=== PATIENT | female | born 1960 | race Caucasian/White ===

== ENCOUNTER → 2017-03-09 | Outpatient (CLI) | payer OTHER ==
[~2017-03-09] MED LIST: GBPN300C PO; LABE100T PO; LEVA15HF3; LORA-404 PO; LSNP20T PO; NAPR500T3 PO; OXYC5CAP4; TRM50T PO
--- NOTE | 2017-03-12 19:48 | Diagnostic Imaging Report ---
INDICATION: Screening. COMPARISON: 04/03/2013 The current digital study was evaluated with a Computer Aided Detection (CAD). FINDINGS: Dense fibroglandular pattern noted bilaterally. There are no masses. No clustered calcifications. No architectural distortion. IMPRESSION: Stable bilateral mammogram. Routine followup recommended. ACR BI-RADS Category 2: Benign findings. Result letter will be mailed to the patient. Note: At least 10% of breast cancer is not imaged by mammography. Dictated by: Dictated on workstation # [id number]
== END ==
LOC: RAD 08:18
PROVIDERS: ATTEND Family Medicine
DX: Z12.31 Encounter for screening mammogram for malignant neoplasm of breast (principal)

== ENCOUNTER 2017-03-19 06:31 | Day surgery (SDC) | payer OTHER ==
[~2017-03-19] VITALS: Ht 149.9 cm; Wt 69.0 kg
[2017-03-19] VITALS (9 sets, daily range): BP systolic 99–127; BP diastolic 51–79
[~2017-03-19 06:31] MED LIST changes: +LACTATED RINGERS 1,000 ML IV SCH; +SODIUM CHLORIDE FLUSH 3 ML SYR IV PRN
--- OUTSIDE RECORDS SUMMARY | 2017-03-19 06:34 | XMS REPORT | Continuity of Care Document ---
Author Author [facility] Organization [facility] Address Unknown Phone Unavailable Care Team Providers Care Threshing Department Supervisor Name Role Phone Jose Cali MD PCP [phone] Insurance Providers Payer Name Policy Number Subscriber Name Relationship [employer] [id number] Nba Iraheta 17 Self / Same As Patient Chief Complaint and Reason for Visit Chief Complaint Pain Reason for Visit [id number] Problems Medical Problems Problem Onset Date Status exposure to chemical 04/19/2012 Resolved Leg pain Unknown Active Joint pain Unknown Active Medications Medication Dose Route Sig Days/Qty Instructions Order Date Discontinued Date Status Levalbuterol Tartrate 04/19/12 02/16/15 Discontinued Lisinopril (Zestril) 20 Mg ORAL DAILY 04/19/12 Active Labetalol Hcl (Normodyne) 100 Mg ORAL DAILY 04/19/12 02/16/15 Discontinued Oxycodone Hcl 04/19/12 02/16/15 Discontinued Gabapentin (Neurontin) 300 Mg ORAL TWICE A DAY 04/19/12 02/16/15 Discontinued Tramadol Hcl 50 Mg ORAL 04/19/12 02/16/15 Discontinued Naproxen 500 Mg ORAL TWICE A DAY WITH MEALS 20 Qty 02/16/15 Active Lorazepam 0.5 Mg ORAL EVERY 8HRS 6 Qty 02/16/15 Active Social History No social history. Hospital Discharge Instructions No hospital discharge instructions. Plan of Care Discharge Date 02/16/15 7:59pm Disposition 01 HOME OR SELF-CARE Condition at Discharge Stable Instructions/Education Provided Osteoarthritis (ED) Prescriptions See Medications Section Referrals Jose Cali MD Additional Instructions/Education Follow up with primary care doctor. Return to ER as needed. Some of your test results may not be complete prior to your leaving the Emergency Department. The Emergency Department is not authorized to give test results over the phone. Please contact the doctor's office listed in this packet of information for your final results. Follow up with your primary care physician or return to the Emergency Department for worsening or worrisome symptoms. * Emergency Department phone number: [phone], x [phone] MEDICAL RECORD If you need copies of your X-rays, call [phone]. If you need copies of your medical record, including lab results, a signed authorization for release of records will be required. A telephone call for release of Health Information is not allowed. BILLING Billing can sometimes be confusing and frustrating. To help avoid confusion in the future, please take a moment to acquaint yourself with the billing parties for services. SERVICE BILLING LIBERTARIAN Emergency Room Services [facility] Physician Services [facility] X-rays [facility] Patients will receive bills for services from the appropriate provider. If you have any questions about your [facility] bill, our staff will be happy to assist you. Please call [phone], and ask for the billing department. THANK YOU for choosing [facility] as your emergency care provider! Functional Status No functional status results. Allergies, Adverse Reactions, Alerts Allergen Type Severity Reaction Status Last Updated hydrocodone bit Adverse Reaction itching Active 04/19/12 Acetaminophen Adverse Reaction itching Active 04/19/12 ASPRIN Allergy Severe HIVES swelling throat edema Active 04/19/12 Immunizations No immunization records. Vital Signs Acute Vital Signs Vital Response Date/Time Temperature (Fahrenheit) 97.9 Pulse 77 bpm Respirations 20 Height 4 ft 11 in Weight 130 lb Body Mass Index 26.0 kg/m^2 Results Test Source Date Result Interp. Ref. Range Comments Erythrocyte Sedimentation Rate February 16, 2015 6:45pm 19 mm/hr N 0-21 D-Dimer February 16, 2015 6:45pm 0.23 ug/mL N 0.00-0.41 C-Reactive Protein February 16, 2015 6:45pm 0.70 mg/dL N 0.0-0.9 Albumin/Globulin Ratio February 16, 2015 6:45pm 1.555 N 1.1-1.8 Albumin February 16, 2015 6:45pm 4.2 g/dL N 3.4-5.0 Total Protein February 16, 2015 6:45pm 6.9 g/dL N 6.4-8.5 Alanine Aminotransferase (ALT/SGPT) February 16, 2015 6:45pm 43 U/L N 30- 65 Aspartate Amino Transf (AST/SGOT) February 16, 2015 6:45pm 30 U/L N 15-37 Alkaline Phosphatase February 16, 2015 6:45pm 51 U/L N 38-126 Total Bilirubin February 16, 2015 6:45pm 0.4 mg/dL N 0.1-1.0 Calcium/Ionized Calcium Ratio February 16, 2015 6:45pm 4.4 mg/dL N 3.8-4.6 Calcium Level February 16, 2015 6:45pm 9.9 mg/dL N 8.8-10.8 Calculated Osmolality February 16, 2015 6:45pm 269 mosm/L L 280-300 Glucose Level February 16, 2015 6:45pm 89 mg/dL N 70-110 Estimated GFR (Non- February 16, 2015 6:45pm 79.0 Estimat Glomerular Filtration Rate February 16, 2015 6:45pm 95.6 BUN/Creatinine Ratio February 16, 2015 6:45pm 20 N 10-20 Creatinine February 16, 2015 6:45pm 0.76 mg/dL N 0.6-1.2 Blood Urea Nitrogen February 16, 2015 6:45pm 15 mg/dL N 7-18 Anion Gap February 16, 2015 6:45pm 11.7 MEQ/L N 3-15 Carbon Dioxide Level February 16, 2015 6:45pm 26 mmol/L N 22-29 Chloride Level February 16, 2015 6:45pm 105 mmol/L N 98-108 Potassium Level February 16, 2015 6:45pm 3.7 mmol/L N 3.5-5.1 Sodium Level February 16, 2015 6:45pm 139 mmol/L N 135-150 Basophils # (Auto) February 16, 2015 6:45pm 0.0 10^3uL Eosinophils # (Auto) February 16, 2015 6:45pm 0.2 10^3uL Monocytes # (Auto) February 16, 2015 6:45pm 0.6 X10^3 Lymphocytes # (Auto) February 16, 2015 6:45pm 2.2 X10^3 Neutrophils # (Auto) February 16, 2015 6:45pm 3.3 X10^3 Basophils (%) (Auto) February 16, 2015 6:45pm 0 % N 0-2 Eosinophils (%) (Auto) February 16, 2015 6:45pm 3 % N 0-4 Monocytes (%) (Auto) February 16, 2015 6:45pm 9 % N 3-11 Lymphocytes (%) (Auto) February 16, 2015 6:45pm 36 % N 20-46 Neutrophils (%) (Auto) February 16, 2015 6:45pm 52 % N 51-67 Mean Platelet Volume February 16, 2015 6:45pm 10.8 FL H 6.0-9.5 Platelet Count February 16, 2015 6:45pm 166 10^3uL N 150-450 Red Cell Distribution Width February 16, 2015 6:45pm 11.8 % N 11.8-15.6 Mean Corpuscular Hemoglobin Concent February 16, 2015 6:45pm 34.5 g/dL N 31.0-37.0 Mean Corpuscular Hemoglobin February 16, 2015 6:45pm 30.0 PG N 26.0-34.0 Mean Corpuscular Volume February 16, 2015 6:45pm 87 FL N 80-100 Hematocrit February 16, 2015 6:45pm 36.80 % N 35.00-45.00 Hemoglobin February 16, 2015 6:45pm 12.7 g/dL N 12.0-15.5 Red Blood Count February 16, 2015 6:45pm 4.24 10^6uL N 4.00-5.00 White Blood Count February 16, 2015 6:45pm 6.29 10^3uL N 4.0-11.0 Procedures No known history of procedures. Encounters Encounter Location Date/Time Departed Emergency Room [facility] 02/16/15 5:43pm Registered Clinic [facility] 02/16/15 5:09pm Recent Diagnosis
[2017-03-19] MEDS ORDERED: CARV12.5 PO (06:54)
[2017-03-19] MEDS ORDERED: AMIT10TA6 PO (06:54)
[2017-03-19] MEDS ORDERED: LISI1TAB6 PO (06:54)
[2017-03-19] MEDS ORDERED: MIDAZOLAM 2 MG/2 ML (VERSED) VIAL ONE (07:53)
[2017-03-19] MEDS ORDERED: ALFENTANIL 500 MCG/ML (ALFENTA) 5 ML AMP IV ONE ×2 (07:57)
--- NOTE | 2017-03-20 10:02 | OPERATIVE REPORT ---
DATE OF OPERATION: March 19, 2017 PRE-OPERATIVE DIAGNOSIS: Screening colonoscopy. POST-OPERATIVE DIAGNOSIS: Normal colonoscopy. OPERATIVE PROCEDURE: Total colonoscopy. SURGEON: Igor Keyes MD ANESTHESIA: Monitored anesthesia care. FINDINGS: 1. The bowel prep was excellent. 2. No neoplasia, angiodysplasia, diverticula or inflammation were seen. INDICATIONS: Patient is a 56-year-old referred by Dr. Cali for colonoscopy screening. She has not had any bowel habit changes and her family history is negative for colorectal cancer. DESCRIPTION OF PROCEDURE: The patient was informed of the risks and benefits and agreed to proceed. She was placed in the left lateral decubitus position and administered IV sedation. When properly sedated rectal exam was performed which was normal. Lighted endoscope was passed into the rectum and was fully advanced along the colon to the cecum. The ileocecal valve and appendiceal orifice were easily seen. The scope was slowly brought back to the ascending transverse descending and sigmoid colon no polyps or neoplasia were noted. The rectum appeared normal throughout. The scope was removed completing the procedure. The patient tolerated the procedure with no complications. With this normal colonoscopy I recommend a repeat screening colonoscopy in ten years.
== END 2017-03-19 11:21 | disposition home or self-care (01) ==
LOC: ASC 06:31
PROVIDERS: ATTEND Surgery
DX: Z12.11 Encounter for screening for malignant neoplasm of colon (principal); I10 Essential (primary) hypertension; J45.909 Unspecified asthma, uncomplicated
CPT/HCPCS: 36415; 45378; 84132; J7120